=== PATIENT | female | born 1955 | race Caucasian/White ===

== ENCOUNTER 2016-08-16 09:09 | Emergency (ER) | payer BC, OTHER ==
[~2016-08-16] VITALS: Ht 152.4 cm; Wt 109.1 kg
[2016-08-16 09:12] VITALS: Ht 152.4 cm; Wt 109.1 kg
[2016-08-16] MEDS ORDERED: HYDROCODONE/APAP (5/325) TAB PO ONE (11:00)
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
[2016-08-16] MEDS ORDERED: TRAM50TA2 PO (12:09)
[2016-08-16] MEDS ORDERED: NAPR-260 PO (12:09)
[2016-08-16] MEDS ORDERED: CYCL-319 PO (12:10)
== END 2016-08-16 12:36 | disposition home or self-care (01) ==
LOC: FTE 09:09
DX: S89.92XA Unspecified injury of left lower leg, initial encounter (principal); S79.922A Unspecified injury of left thigh, initial encounter; I10 Essential (primary) hypertension; V03.10XA Pedestrian on foot injured in collision with car, pick-up truck or van in traffic accident, initial encounter
CPT/HCPCS: 72170; 73550; 73590; Z7502; Z7610